=== PATIENT | female | born 1985 | race American Indian/Alaskan Native ===

== ENCOUNTER 2018-02-23 22:55 | Emergency (ER) | payer OTHER ==
[2018-02-24 01:01] VITALS: BP 103/64
[2018-02-24] MEDS ORDERED: TYLENOL PO ONE (01:10)
--- NOTE | 2018-02-24 02:45 | XRay Report ---
FINAL REPORT EXAM: XR ANKLE 2V LT HISTORY: left ankle pain and swelling TECHNIQUE: Two views of the left ankle PRIORS: None. FINDINGS: The bones are normally aligned and mineralized. The joint spaces are well-preserved. There is no evidence of acute fracture. There is prominent lateral soft tissue swelling just below the lateral malleolus. IMPRESSION: No evidence of acute fracture or subluxation. Prominent lateral soft tissue swelling just below the lateral malleolus.
--- NOTE | 2018-02-24 03:19 | Emergency Department Report ---
ED Lower Extremity HPI - General Chief Complaint: Extremity Injury, Lower Stated Complaint: UPPER RESPIRATORY INFECTION Time Seen by Provider: 02/24/18 03:11 Source: patient, family Mode of arrival: Ambulatory Limitations: No Limitations - Related Data Previous Rx's Medication Instructions Recorded Last Taken Type Nitrofurantoin [place]/M-Cryst 100 mg PO Q12HR 7 Days capsule 03/01/13 Unknown Rx [Macrobid] Ibuprofen [Motrin 600 MG tab] 600 mg PO Q8H #30 tablet 02/24/18 Unknown Rx Allergies Allergy/AdvReac Type Severity Reaction Status Date / Time No Known Allergies Allergy Verified 10/10/13 01:57 ED Review of Systems ROS: Stated complaint: UPPER RESPIRATORY INFECTION Other details as noted in HPI ED Past Medical Hx - Past Medical History Previous Medical History?: No Hx Hypertension: No Hx Congestive Heart Failure: No Hx Diabetes: No Hx Deep Vein Thrombosis: No Hx Renal Disease: No Hx Sickle Cell Disease: No Hx Seizures: No Hx Asthma: No Hx COPD: No Hx HIV: No - Surgical History Past Surgical History?: No - Social History Smoking Status: Never Smoker Substance Use Type: None - Medications Home Medications: Home Medications Medication Instructions Recorded Confirmed Last Taken Type Nitrofurantoin [place]/M-Cryst 100 mg PO Q12HR 7 Days capsule 03/01/13 10/10/13 Unknown Rx [Macrobid] Ibuprofen [Motrin 600 MG tab] 600 mg PO Q8H #30 tablet 02/24/18 Unknown Rx ED Physical Exam - General Limitations: No Limitations ED Course Vital Signs 02/24/18 00:58 Temperature 97.9 F Pulse Rate 97 H Respiratory 18 Rate Blood Pressure 103/64 O2 Sat by Pulse 99 Oximetry ED Lower Extremity MDM - Radiology Data Radiology results: report reviewed FINAL REPORT EXAM: XR ANKLE 2V LT HISTORY: left ankle pain and swelling TECHNIQUE: Two views of the left ankle PRIORS: None. FINDINGS: The bones are normally aligned and mineralized. The joint spaces are well-preserved. There is no evidence of acute fracture. There is prominent lateral soft tissue swelling just below the lateral malleolus. IMPRESSION: No evidence of acute fracture or subluxation. Prominent lateral soft tissue swelling just below the lateral malleolus. Transcribed By: RONALD Dictated By: JAQUELINE SAUER MD Electronically Authenticated By: JAQUELINE SAUER MD Signed Date/Time: 09243 DD/ 3 TD/TT: 02/24/18243 Critical care attestation.: If time is entered above; I have spent that time in minutes in the direct care of this critically ill patient, excluding procedure time. ED Disposition Clinical Impression: Left ankle swelling Disposition: - TO HOME OR SELFCARE Is pt being admited?: No Does the pt Need Aspirin: No Condition: Stable Additional Instructions: Please take Motrin for pain management. Follow up with your primary care provider for further evaluation. X-ray will negative for fractures or dislocation. Prescriptions: Ibuprofen [Motrin 600 MG tab] 600 mg PO Q8H #30 tablet Referrals: PRIMARY CAREMD [Primary Care Provider] - 3-5 Days [facility] [Provider Group] - 3-5 Days
[2018-02-24] MEDS ORDERED: MOTRIN PO ONE (03:24)
== END 2018-02-24 03:33 | disposition home or self-care (01) ==
LOC: ED 22:55
DX: M25.572 Pain in left ankle and joints of left foot (principal); R22.42 Localized swelling, mass and lump, left lower limb
CPT/HCPCS: 99283

== ENCOUNTER 2019-04-25 10:12 | Emergency (ER) | payer OTHER ==
[2019-04-25 10:31] VITALS: BP 132/79
--- NOTE | 2019-04-25 12:14 | Emergency Department Report ---
ED Lower Extremity HPI - General Chief Complaint: Extremity Injury, Lower Stated Complaint: (L) LEG PAIN/FELL DOWNSTAIRS Time Seen by Provider: 04/25/19 10:41 Source: patient Mode of arrival: Ambulatory Limitations: No Limitations - History of Present Illness Initial Comments: This is a 33-year-old female nontoxic, well nourished in appearance, no acute signs of distress presents to the ED with c/o of left ankle pain. Patient stated that she had a trip and fall from the stairs and twisted ankle while she fell. Patient denies any other trauma. Patient denies any numbness, tingling, fever, chills, nausea, vomiting, chest pain, shortness of breath, headache, stiff neck. Patient denies any joint swelling or joint redness. Patient denies decreased range of motion. Patient stated has decreased gait due to pain. Patient denies any allergies. MD Complaint: ankle injury -: This morning Injury: Ankle: Left Type of Injury: inversion Severity: mild Severity scale (0 -10): 8 Improves With: immobilization Worsens With: weight bearing, movement, palpation Associated Symptoms: swelling, able to partially bear weight, ambulatory. denies: snap/pop sensation, numbness, tingling, unable to bear weight - Related Data Previous Rx's Medication Instructions Recorded Last Taken Type Nitrofurantoin [place]/M-Cryst 100 mg PO Q12HR 7 Days capsule 03/01/13 Unknown Rx [Macrobid] Ibuprofen [Motrin 600 MG tab] 600 mg PO Q8H #30 tablet 02/24/18 Unknown Rx Acetaminophen/Codeine [Tylenol 1 tab PO Q6H PRN #12 tab 04/25/19 Unknown Rx /Codeine # 3 tab] Allergies Allergy/AdvReac Type Severity Reaction Status Date / Time No Known Allergies Allergy Verified 10/10/13 01:57 ED Review of Systems ROS: Stated complaint: (L) LEG PAIN/FELL DOWNSTAIRS Other details as noted in HPI Constitutional: denies: chills, fever Eyes: denies: eye pain, eye discharge, vision change ENT: denies: ear pain, throat pain Respiratory: denies: cough, shortness of breath, wheezing Cardiovascular: denies: chest pain, palpitations Endocrine: no symptoms reported Gastrointestinal: denies: abdominal pain, nausea, diarrhea Genitourinary: denies: urgency, dysuria, discharge Musculoskeletal: denies: back pain, joint swelling, arthralgia Skin: denies: rash, lesions Neurological: denies: headache, weakness, paresthesias Psychiatric: denies: anxiety, depression Hematological/Lymphatic: denies: easy bleeding, easy bruising ED Past Medical Hx - Past Medical History Previous Medical History?: Yes Hx Hypertension: Yes Hx Congestive Heart Failure: No Hx Diabetes: No Hx Deep Vein Thrombosis: No Hx Renal Disease: No Hx Sickle Cell Disease: No Hx Seizures: No Hx Asthma: No Hx COPD: No Hx HIV: No Additional medical history: lupus - Surgical History Past Surgical History?: No - Social History Smoking Status: Never Smoker Substance Use Type: None - Medications Home Medications: Home Medications Medication Instructions Recorded Confirmed Last Taken Type Nitrofurantoin [place]/M-Cryst 100 mg PO Q12HR 7 Days capsule 03/01/13 10/10/13 Unknown Rx [Macrobid] Ibuprofen [Motrin 600 MG tab] 600 mg PO Q8H #30 tablet 02/24/18 Unknown Rx Acetaminophen/Codeine [Tylenol 1 tab PO Q6H PRN #12 tab 04/25/19 Unknown Rx /Codeine # 3 tab] ED Physical Exam - General Limitations: No Limitations General appearance: alert, in no apparent distress - Head Head exam: Present: atraumatic, normocephalic - Eye Eye exam: Present: normal appearance - Extremities Exam Extremities exam: Present: normal inspection, full ROM, tenderness, normal capillary refill. Absent: joint swelling - Expanded Lower Extremity Exam Left Hip exam: Present: normal inspection, full ROM. Absent: tenderness, swelling Upper Leg exam: Present: normal inspection, full ROM. Absent: tenderness, swelling Knee exam: Present: normal inspection, full ROM. Absent: tenderness, swelling Lower Leg exam: Present: normal inspection, full ROM. Absent: tenderness Ankle exam: Present: normal inspection, full ROM, tenderness, swelling, ecchymosis. Absent: abrasion, laceration, deformity, crepidus, dislocation, erythema, anterior draw sign Foot/Toe exam: Present: normal inspection, full ROM. Absent: tenderness, swelling Neuro vascular tendon exam: Present: no vascular compromise Gait: Positive: observed and limited by pain - Back Exam Back exam: Present: normal inspection, full ROM. Absent: tenderness, CVA tenderness (R), CVA tenderness (L), muscle spasm, paraspinal tenderness, vertebral tenderness, rash noted - Neurological Exam Neurological exam: Present: alert, oriented X3, normal gait - Psychiatric Psychiatric exam: Present: normal affect, normal mood - Skin Skin exam: Present: warm, dry, intact, normal color. Absent: rash ED Course Vital Signs 04/25/19 10:29 Temperature 98.4 F Pulse Rate 96 H Respiratory 16 Rate Blood Pressure 132/79 [Left] O2 Sat by Pulse 96 Oximetry - Reevaluation(s) Reevaluation #1: 04/25/19 12:14 Patient is speaking in full sentences with no signs of distress noted. ED Lower Extremity MDM - Medical Decision Making This is a 33-year-old female that presents with left ankle sprain. Patient is stable and was examined by me. I referred patient to an orthopedic doctor for further evaluation for possible MRI. X-ray has been obtained and dictated by the radiologist. Patient is notified of the x-ray report with noted by the patient. Patient does have normal gait with no tenderness and no joint swelling. No ecchymosis. no joint redness or swelling. Not warm to touch. No signs of cellulites present. Patient received ankle stirrup and crutches and was educated by RN how to use crutches. Patient was instructed to RICE therapy. Patient received Motrin for pain. Patient is discharged with Tylenol #3. At time of discharge, the patient does not seem toxic or ill in appearance. No acute signs of distress noted. Patient agrees to discharge treatment plan of care. No further questions noted by the patient. Critical care attestation.: If time is entered above; I have spent that time in minutes in the direct care of this critically ill patient, excluding procedure time. ED Disposition Clinical Impression: Left ankle sprain Qualifiers: Encounter type: initial encounter Involved ligament of ankle: unspecified ligament Qualified Code(s): S93.402A - Sprain of unspecified ligament of left ankle, initial encounter Disposition: TO HOME OR SELFCARE Is pt being admited?: No Does the pt Need Aspirin: No Condition: Stable Instructions: Ankle Sprain (ED), Ankle Stirrup Splint (ED), RICE Therapy (ED), Acetaminophen/Codeine (By mouth) Additional Instructions: Follow-up with a orthopedic doctor in 3-5 days or if symptoms worsen and continue return to emergency room as soon as possible. Do not operate any machinery while taking Tylenol with codeine as this may cause drowsiness. Prescriptions: Acetaminophen/Codeine [Tylenol /Codeine # 3 tab] 1 tab PO Q6H PRN #12 tab PRN Reason: Pain , Severe (7-10) Referrals: PRIMARY CAREMD [Referring] - 3-5 Days DANIELLE ANSARI MD [Staff Physician] - 3-[address] [facility] [Outside] - 3-5 Days Forms: Work/School Release Form(ED)
--- NOTE | 2019-04-25 12:30 | XRay Report ---
XR ankle 3+V LT INDICATION / CLINICAL INFORMATION: ankle pain and swelling. COMPARISON: None available. FINDINGS: BONES/JOINT(S): No acute fracture or subluxation. No significant degenerative changes. SOFT TISSUES: Mild soft tissue swelling in the lateral ankle. ADDITIONAL FINDINGS: None. Signer Name: Bin Amor MD Signed: 04/25/2019 12:26 PM Workstation Name: [id number]
== END 2019-04-25 13:34 | disposition home or self-care (01) ==
LOC: ED 10:12
DX: S93.402A Sprain of unspecified ligament of left ankle, initial encounter (principal); I10 Essential (primary) hypertension; Z79.899 Other long term (current) drug therapy; W01.0XXA Fall on same level from slipping, tripping and stumbling without subsequent striking against object, initial encounter; Y93.01 Activity, walking, marching and hiking; Y92.89 Other specified places as the place of occurrence of the external cause; Y99.8 Other external cause status

== ENCOUNTER 2019-10-26 22:41 | Observation (INO) | payer OTHER ==
[2019-10-26] MEDS ORDERED: ASPIRIN 325 MG TAB PO ONE (23:20)
[2019-10-26 23:54] LABS: Basophils # (Auto) 0.1 K/mm3 (0.0-0.1); Basophils % (Auto) 0.8 % (0.0-1.8); Eosinophils # (Auto) 0.1 K/mm3 (0.0-0.4); Eosinophils % (Auto) 0.8 % (0.0-4.3); Hematocrit 39.4 % (30.3-42.9); Lymphocytes # (Auto) 1.5 K/mm3 (1.2-5.4); Lymphocytes % (Auto) 22.1 % (13.4-35.0); Mean Corpuscular HGB Conc 33 % (30-34); Mean Corpuscular Volume 88 fl (79-97); Monocytes # (Auto) 0.5 K/mm3 (0.0-0.8); Platelet Count 338 K/mm3 (140-440); Red Blood Count 4.46 M/mm3 (3.65-5.03); Red Cell Distribution Width 14.2 % (13.2-15.2)
--- NOTE | 2019-10-27 00:03 | XRay Report ---
CHEST 1 VIEW, 10/26/2019 10:50 PM CLINICAL INFORMATION/INDICATION: Chest pain COMPARISON: No relevant prior studies are available for comparison FINDINGS: SUPPORT DEVICES: None. HEART: The cardiac silhouette is normal in size. LUNGS/PLEURA: The lungs are clear of focal airspace disease or significant pleural effusion. ADDITIONAL FINDINGS: No additional acute findings. IMPRESSION: 1. No evidence of acute cardiopulmonary process. Signer Name: Mary Silver MD Signed: 10/26/2019 11:59 PM Workstation Name: [id number]
[2019-10-27 00:17] LABS: BUN/Creatinine Ratio 15; Blood Urea Nitrogen 12 mg/dL (7-17); Calcium 9.2 mg/dL (8.4-10.2); Hemolysis Index 21
[2019-10-27] MEDS ORDERED: NITROGLYCERIN 2% OINT 1 GM TP ONE (00:49)
[2019-10-27] MEDS ORDERED: ONDANSETRON 4 MG/2 ML INJ IV ONE (00:49)
[2019-10-27] MEDS ORDERED: fentaNYL 100 MCG/2 ML INJ IV ONE (00:49)
--- NOTE | 2019-10-27 00:54 | Emergency Department Report ---
HPI - General Chief Complaint: Chest Pain Time Seen by Provider: 10/27/19 00:42 - HPI HPI: Room 4 The patient is a 34-year-old female present with a chief complaint of chest pain. Patient states her symptoms began yesterday with substernal chest pain r adiating to the left upper extremity. Patient describes the chest pain is sharp and constant in nature. Patient admits to pleurisy. Patient admits to shortness of breath, diaphoresis and nausea without vomiting with this chest pain. Patient currently gives her pain a score of 8/10. Patient denies cough but states she has been in contact last week with a person who is COVID positive. Patient states she is never had a stress test or cardiac catheterization ED Past Medical Hx - Past Medical History Previous Medical History?: Yes Additional medical history: lupus - Surgical History Past Surgical History?: No - Family History Family history: no significant - Social History Smoking Status: Never Smoker Substance Use Type: None (Denies illicit drug use) - Medications Home Medications: Home Medications Medication Instructions Recorded Confirmed Last Taken Type Nitrofurantoin [place]/M-Cryst 100 mg PO Q12HR 7 Days capsule 03/01/13 10/10/13 Unknown Rx [Macrobid] Ibuprofen [Motrin 600 MG tab] 600 mg PO Q8H #30 tablet 02/24/18 Unknown Rx Acetaminophen/Codeine [Tylenol 1 tab PO Q6H PRN #12 tab 04/25/19 Unknown Rx /Codeine # 3 tab] ED Review of Systems ROS: Stated complaint: SOB/CHEST PRESSURE/DIZZY/EAR PAIN Other details as noted in HPI Constitutional: diaphoresis Eyes: denies: eye pain ENT: denies: throat pain Respiratory: shortness of breath, other (Pleurisy) Cardiovascular: chest pain Endocrine: no symptoms reported Gastrointestinal: nausea. denies: vomiting Genitourinary: denies: dysuria Neurological: headache Physical Exam - Physical Exam Vital Signs: Vital Signs 10/26/19 23:10 Temperature 98.6 F Pulse Rate 103 H Respiratory 18 Rate Blood Pressure 125/87 O2 Sat by Pulse 100 Oximetry Physical Exam: GENERAL: The patient is well-developed well-nourished female lying on stretcher not appearing to be in acute distress. [] HEENT: Normocephalic. Atraumatic. Extraocular motions are intact. Patient has moist mucous membranes. NECK: Supple. Trachea midline CHEST/LUNGS: Clear to auscultation. There is no respiratory distress noted. HEART/CARDIOVASCULAR: Regular. There is no tachycardia. There is no gallop rub or murmur. ABDOMEN: Abdomen is soft, nontender. Patient has normal bowel sounds. There is no abdominal distention. SKIN: There is no rash. There is no edema. There is no diaphoresis. NEURO: The patient is awake, alert, and oriented. The patient is cooperative. The patient has normal speech MUSCULOSKELETAL: There is no evidence of acute injury. ED Course Vital Signs 10/26/19 23:10 Temperature 98.6 F Pulse Rate 103 H Respiratory 18 Rate Blood Pressure 125/87 O2 Sat by Pulse 100 Oximetry ED Medical Decision Making - Lab Data Result diagrams: 10/26/19 23:35 10/26/19 23:35 Laboratory Tests 10/26/19 10/26/19 10/26/19 23:35 23:35 23:35 WBC 6.6 RBC 4.46 Hgb 13.0 Hct 39.4 MCV 88 MCH 29 MCHC 33 RDW 14.2 Plt Count 338 Lymph % (Auto) 22.1 [place] % (Auto) 8.0 H Eos % (Auto) 0.8 Baso % (Auto) 0.8 Lymph # 1.5 [place] # 0.5 Eos # 0.1 Baso # 0.1 Seg Neutrophils % 68.3 Seg Neutrophils # 4.5 Sodium 138 Potassium 4.1 Chloride 100.0 Carbon Dioxide 24 Anion Gap 18 BUN 12 Creatinine 0.8 Estimated GFR > 60 BUN/Creatinine Ratio 15 Glucose 81 Calcium 9.2 Troponin T < 0.010 HCG, Qual Negative - EKG Data -: EKG Interpreted by Me EKG shows normal: sinus rhythm Rate: normal - EKG Data When compared to previous EKG there are: previous EKG unavailable Interpretation: other (No ischemic changes seen) - Radiology Data Radiology results: report reviewed (Chest x-ray, CT chest), image reviewed (Chest x-ray, CT chest) interpreted by me: Chest x-ray-no focal infiltrates, no pneumothorax Findings [facility] [address] [place] [address] XRay Report Signed Patient: AZRA DE LA PAZ MR#: [id number] : 1985 Acct:[id number] Age/Sex: 34 / F ADM Date: 10/26/19 Loc: ED Attending Dr: Ordering Physician: NY CASEY MD Date of Service: 10/26/19 Procedure(s): XR chest 1V ap Accession Number(s): [id number] cc: NY CASEY MD Fluoro Time In Minutes: CHEST 1 VIEW, 10/26/2019 10:50 PM CLINICAL INFORMATION/INDICATION: Chest pain COMPARISON: No relevant prior studies are available for comparison FINDINGS: SUPPORT DEVICES: None. HEART: The cardiac silhouette is normal in size. LUNGS/PLEURA: The lungs are clear of focal airspace disease or significant pleural effusion. ADDITIONAL FINDINGS: No additional acute findings. IMPRESSION: 1. No evidence of acute cardiopulmonary process. Signer Name: Mary Silver MD Signed: 10/26/2019 11:59 PM Workstation Name: [id number] Transcribed By: EB Dictated By: Mary Silver MD Electronically Authenticated By: Mary Silver MD Signed Date/Time: 10/26/192358 DD/ 57 TD/TT: Findings [facility] [address] [place] [address] Cat Scan Report Signed Patient: AZRA DE LA PAZ MR#: [id number] : 1985 Acct:[id number] Age/Sex: 34 / F ADM Date: 10/26/19 Loc: ED Attending Dr: Ordering Physician: BABS VARELA MD Date of Service: 10/27/19 Procedure(s): CT angio chest Accession Number(s): [id number] cc: BABS VARELA MD CTA CHEST WITH IV CONTRAST INDICATION: Chest pain TECHNIQUE: Axial CT images were obtained through the chest after injection of IV contrast. Coronal oblique 2-D reconstruction images were produced. 3 plane MIP reconstruction images were produced at an independent workstation. All CTs at this facility utilize dose reduction techniques including automated exposure control, iterative reconstruction and weight based dosing when appropriate to reduce patient radiation dose to as low as reasonable achievable. COMPARISON: Chest radiograph, 10/26/2019 FINDINGS: Evaluation of the pulmonary arteries demonstrates no central or segmental filling defects to suggest pulmonary embolism. The heart is normal in size. The thoracic aorta appears normal in caliber. Evaluation of the lung parenchyma demonstrates no evidence of focal airspace disease or pleural effusion. Limited imaging of the upper abdomen demonstrates no evidence of acute abnormality. Evaluation of bony structures demonstrates no evidence of acute bony abnormality. Evaluation of soft tissue structures demonstrates no evidence of focal soft tissue abnormality.. IMPRESSION: 1. No CT evidence of pulmonary em bolism or acute parenchymal process. Signer Name: Mary Silver MD Signed: 10/27/2019 1:53 AM Workstation Name: [email or web address] Transcribed By: EB Dictated By: Mary Silver MD Electronically Authenticated By: Mary Silver MD Signed Date/Time: 10/27/19 0153 DD/ 0149 TD/TT: - Differential Diagnosis ACS, PE, pericarditis, GERD Critical care attestation.: If time is entered above; I have spent that time in minutes in the direct care of this critically ill patient, excluding procedure time. ED Disposition Clinical Impression: Chest pain Disposition: DC-[id number] OP ADMIT IP TO THIS HOSP Is pt being admited?: Yes Does the pt Need Aspirin: Yes Condition: Fair Instructions: Chest Pain (ED) Referrals: PRIMARY CARE, [Primary Care Provider] - 3-5 Days Time of Disposition: 02:06 (Hospitalist paged (Dr. Shea Oates))
[2019-10-27] MEDS ORDERED: ASPIRIN 325 MG TAB ONE (01:29)
--- NOTE | 2019-10-27 01:58 | Cat Scan Report ---
CTA CHEST WITH IV CONTRAST INDICATION: Chest pain TECHNIQUE: Axial CT images were obtained through the chest after injection of IV contrast. Coronal oblique 2-D reconstruction images were produced. 3 plane MIP reconstruction images were produced at an [employer] workstation. All CTs at this facility utilize dose reduction techniques including automated expos ure control, iterative reconstruction and weight based dosing when appropriate to reduce patient radi ation dose to as low as reasonable achievable. COMPARISON: Chest radiograph, 10/26/2019 FINDINGS: Evaluation of the pulmonary arteries demonstrates no central or segmental filling defects to suggest pulmonary embolism. The heart is normal in size. The thoracic aorta appears normal in caliber. Evalua tion of the lung parenchyma demonstrates no evidence of focal airspace disease or pleural effusion. Limited imaging of the upper abdomen demonstrates no evidence of acute abnormality. Evaluation of bony structures demonstrates no evidence of acute bony abnormality. Evaluation of soft tissue structures demonstrates no evidence of focal soft tissue abnormality.. IMPRESSION: 1. No CT evidence of pulmonary embolism or acute parenchymal process. Signer Name: Mary Silver MD Signed: 10/27/2019 1:53 AM Workstation Name: [email or web address]
[2019-10-27] MEDS ORDERED: ONDANSETRON 4 MG/2 ML INJ IV PRN (03:39)
[2019-10-27] MEDS ORDERED: ACETAMINOPHEN 325 MG TAB PO PRN (03:39)
--- NOTE | 2019-10-27 03:43 | History and Physical Report ---
History of Present Illness History of present illness: 34-year-old woman with a history of lupus comes emergency room for evaluation. She complains of chest pain in the left substernal area which she describes as sharp pain, constant, intensity 5/10, radiating to the left arm which he described as a burning sensation in the arm. Admits to nausea, no vomiting, shortness of breath, diaphoresis or palpitation. The patient will be admitted for chest pain Review Of Systems: Constitutional: no weight loss, fever, chills Ears, eyes, nose, mouth and throat: no nasal congestion, no nasal discharge, no sinus pressure, blurry vision, diplopia Neck: No neck pain or rigidity. Cardiovascular: No palpitation Respiratory: No shortness of breath, cough Gastrointestinal: No hematochezia Genitourinary : no dysuria, frequency Musculoskeletal: no muscle ache , joint pain Integumentary: no rash, no pruritis Neurological: no parathesias, focal weakness Endocrine: no cold or heat intolerance, no polyuria or polydipsia Hematologic/Lymphatic: no easy bruising, no easy bleeding, no gland swelling Allergic/Immunologic: no urticaria, no angioedema. PAST MEDICAL HISTORY: Lupus PAST SURGICAL HISTORY: None SOCIAL HISTORY: Denies alcohol, tobacco, drugs FAMILY HISTORY: Hypertension Medications and Allergies Allergies Allergy/AdvReac Type Severity Reaction Status Date / Time No Known Allergies Allergy Verified 10/10/13 01:57 Home Medications Medication Instructions Recorded Confirmed Last Taken Type No Known Home Medications [No 10/27/19 10/27/19 Unknown History Reported Home Medications] Exam - Physical Exam Narrative exam: Gen. appearance: Patient lying in bed, no apparent distress HEENT: Normocephalic, atraumatic, pupils equally round and reactive to light, extraocular movement intact, and no sclericterus,. No JVD or thyromegaly or nodule,neck supple, no carotid bruit ,mucous membranes moist, no exudate or erythema Heart: S1, S2, regular rate and rhythm Lungs: Clear bilaterally, breathing comfortable Abdomen: Positive bowel sounds, nontender, nondistended, no organomegaly Extremity: no edema, cyanosis, clubbing Skin: No rash, nodules, warm, dry Neuro: Cranial nerves II to XII intact, speech is fluent, moves extremities, sensory intact - Constitutional Vitals: Temp Pulse Resp BP Pulse Ox 98.4 F 103 H 18 110/66 98 10/27/19 01:00 10/27/19 02:16 10/27/19 02:26 10/27/19 02:16 10/27/19 02:16 HEART Score - HEART Score Troponin: Troponin T < 0.010 ng/mL (0.00-0.029) 10/27/19 02:17 Results - Labs CBC & Chem 7: 10/26/19 23:35 10/26/19 23:35 Labs: Abnormal lab results 10/26/19 Range/Units 23:35 [place] % (Auto) 8.0 H (0.0-7.3) % - Imaging and Cardiology EKG: image reviewed Chest x-ray: report reviewed CT scan - chest: report reviewed Assessment and Plan Assessment Chest pain Check cardiac enzymes, consult cardiology No stress test available today IV morphine, aspirin, DVT prophylaxis Lupus, stable
[2019-10-27] MEDS: ENOXAPARIN 40 MG/0.4 ML INJ SUB-Q SCH (09:09)
[2019-10-27] MEDS: ASPIRIN 81 MG TAB CHEW PO SCH (09:09)
[2019-10-27] MEDS: MORPHINE 2 MG/1 ML INJ IV PRN ×2 (09:09→22:12)
--- NOTE | 2019-10-27 09:55 | Event Note ---
Date: 10/27/19 34-year-old female patient with h/o lupus was admitted this morning with chest pain, Patient was evaluated by cardiology, and is scheduled for a stress test tomorrow CTA chest -ve for PE, continue current management,f/u echo for LV function and ejection fraction Follow stress test if negative and patient is stable may be discharged home tomorrow Plan of care reviewed with the patient and her nurse
[2019-10-27] MEDS ORDERED: ENOXAPARIN 30 MG/0.3 ML INJ SUB-Q SCH (10:00)
--- NOTE | 2019-10-27 10:38 | Consultation ---
REFERRING PHYSICIAN: Hospitalist service. REASON FOR CONSULTATION: Advice and opinion regarding chest pain. HISTORY OF PRESENT ILLNESS: The patient is a very pleasant 34-year-old female with a history of lupus. 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 She had an episode of chest pain, describes as sharp and constant, radiating to left arm, some burning. No diaphoresis, nausea or vomiting. No syncope or presyncope. No blurred vision. PAST MEDICAL HISTORY: Lupus. PAST SURGICAL HISTORY: None. SOCIAL HISTORY: Nonsmoker, nondrinker. FAMILY HISTORY: No family history of premature heart disease. She has a family history of hypertension. ALLERGIES: No known drug allergies. MEDICATIONS: No known home medications. PHYSICAL EXAMINATION: VITAL SIGNS: Blood pressure is 120/76. She is afebrile. Tele reveals sinus rhythm in 80s, no dysrhythmias or pauses. O2 sat is 99% on room air. HEENT: Sclerae are anicteric. NECK: Supple. No mass or JVD. CHEST: Clear to auscultation bilaterally. Good air movement. CARDIOVASCULAR: Regular rhythm S1, S2. ABDOMEN: Soft, nontender, nondistended. Normoactive bowel sounds in 4 quadrants. No mass or bruits. EXTREMITIES: No cyanosis, clubbing, edema. Good peripheral pulses. SKIN: Intact. No rashes. DATA: EKG is nonacute. Chest x-ray is unremarkable. Chest CT reveals no pulmonary embolus or acute parenchymal process. LABORATORY DATA: Cardiac enzymes are negative x 2. test is negative. CBC is normal. BMP is normal. ASSESSMENT AND PLAN: In conclusion, the patient is a very pleasant 34-year-old female with history of lupus here with chest pain with typical and atypical features. Cardiac enzymes negative x 2. EKG is nonacute. At this point, we will check stress test, echocardiogram, aggressive primary and secondary prevention measures. Continue aspirin, DVT prophylaxis. Further plans contingent on these results. Thank you for this consultation. We would be happy to follow along with you. JOB# [id number] SBM/NTS
[2019-10-28 05:15] LABS: Chol/HDL Ratio 3.02 %
[2019-10-28] MEDS ORDERED: REGADENOSON 0.4 MG/5 ML INJ IV ONE ×2 (08:06→08:14)
--- NOTE | 2019-10-28 11:36 | Progress Note ---
Assessment and Plan no further cp tte/stress thallium unremarkable aggressive primary and secondary prevention measures - Patient Problems (1) Chest pain Current Visit: Yes Status: Acute Subjective Date of service: 10/28/19 Interval history: no cp or any sxs overnight Objective Vital Signs Temp Pulse Pulse Pulse Resp BP Pulse Ox 10/28/19 10:32 135/75 10/28/19 10:30 120/75 10/28/19 10:28 131/73 10/28/19 10:26 134/67 10/28/19 10:24 120/73 10/28/19 10:22 110/77 10/28/19 10:13 116/70 10/28/19 07:45 98.3 F 94 H 20 104/68 99 10/28/19 07:30 81 81 16 99 10/28/19 04:32 98.1 F 91 H 18 101/56 96 10/28/19 00:08 98.4 F 100 H 18 87/54 99 10/27/19 23:00 96 H 10/27/19 22:42 18 10/27/19 22:12 18 10/27/19 22:00 96 H 18 100 10/27/19 19:36 98.7 F 96 H 18 115/62 100 10/27/19 16:18 98.3 F 18 100/56 10/27/19 15:00 100 H - Labs and Meds Lipids 10/28/19 Range/Units 04:00 Triglycerides 57 (2-149) mg/dL Cholesterol 142 (50-199) mg/dL HDL Cholesterol 47 (40-59) mg/dL Cholesterol/HDL Ratio 3.02 % - Imaging and Cardiology EKG: image reviewed
[2019-10-28] MEDS: ASPIRIN 81 MG TAB CHEW PO SCH (11:43)
[2019-10-28] MEDS: ENOXAPARIN 40 MG/0.4 ML INJ SUB-Q SCH (11:43)
[2019-10-28 11:58] VITALS: BP 111/73
--- NOTE | 2019-10-28 12:42 | Treadmill Report ---
NUCLEAR PERFUSION SCAN REFERRING PHYSICIAN: Hospitalist service. PROTOCOL: The patient was brought to the stress lab in a postoperative state, given 10 mCi of technetium 99m at rest. The patient underwent rest imaging. The patient underwent Lexiscan stress test per standard protocol. At peak stress, the patient was given 26 mCi of technetium 99m. Shortly thereafter, the patient underwent stress imaging. Raw imaging reveals significant breast attenuation, mild GI artifact, no motion artifact. SPECT images examined carefully in horizontal long axis, vertical long axis, short axis views. Although technically difficult, grossly no evidence of significant fixed or reversible perfusion defects suggestive of prior infarction or ischemia. Gated wall motion reveals normal systolic thickening, calculated ejection fraction 62%. No TID. CONCLUSIONS: 1. Technically difficult study, but grossly probably normal without evidence of significant degree of prior infarction or active ischemia. 2. Normal left ventricular systolic performance, with a calculated ejection fraction of 62% without evidence of transient ischemic dilatation or stress-induced segmental wall motion abnormalities. JOB# [id number] ELIZ/DARIUSZ
--- NOTE | 2019-10-28 13:43 | Discharge Summary ---
Providers - Providers Date of Admission: 10/27/19 05:22 Date of discharge: 10/28/19 Attending physician: ELA DUNCAN 10/27/19 03:39 Consult to Physician [CONS] Routine Comment: Consulting Provider: MARIS GARCIA Physician Instructions: Reason For Exam: cp Primary care physician: METER ENGINEER Hospitalization Reason for admission: Atypical chest pain Condition: Stable Pertinent studies: Chest x-ray; negative CTA chest; no CT evidence of PE or parenchymal disease Echo; EF 60 to 65%; normal left ventricular diastolic filling Mild concentric LVH Procedures: Stress test; 80 for ischemia, normal LV function Hospital course: Morbidly obese 34-year-old woman with a history of lupus was admitted through emergency room with complains of chest pain in the left substernal area which she describes as sharp pain, constant, intensity 5/10, radiating to the left arm which he described as a burning sensation in the arm. Patient was admitted to the hospital, appropriately managed, subsequently evaluated by cardiology, and patient underwent stress test which was negative for ischemia, normal LV function, patient's chest pain is noncardiac probably secondary to GERD. Advised Protonix Patient also strongly advised diet modification exercise as tolerated and weight reduction when medically stable Patient symptoms significantly improved Today is comfortable no new complaints vital signs stable Physical examination unremarkable Hemodynamically and clinically stable at discharge Discharge diagnosis; --Atypical chest pain; probably noncardiac Probably secondary to GERD, stress test is negative for ischemia EF normal --GERD; probably the cause of chest pain, Protonix --Morbid obesity; BMI 45.7 Advised diet modification exercise as tolerated and weight reduction when stable Patient also advised outpatient bariatric surgical consultation for weight reduction program When medically stable Patient is hemodynamically and clinically stable at discharge Strongly advised the patient to to follow with private regulatory submissions associate Should she have recurrent episodes of chest pain Patient may also need outpatient GI evaluation if she has recurrent worsening symptoms Patient verbalized understanding Disposition: DC-01 TO HOME OR SELFCARE Time spent for discharge: 32 min Core Measure Documentation - Palliative Care Palliative Care/ Comfort Measures: Not Applicable - Core Measures Any of the following diagnoses?: none Exam - Constitutional Vitals: Temp Pulse Resp BP Pulse Ox 98.1 F 84 20 111/73 99 10/28/19 11:00 10/28/19 11:00 10/28/19 11:00 10/28/19 11:00 10/28/19 11:00 General appearance: Present: no acute distress, well-nourished, obese (Morbidly obese) - EENT Eyes: Present: PERRL, EOM intact - Neck Neck: Present: supple, normal ROM - Respiratory Respiratory effort: normal Respiratory: bilateral: diminished, negative: rales, rhonchi, wheezing - Cardiovascular Rhythm: regular Heart Sounds: Present: S1 & S2 Plan Activity: no restrictions Diet: regular Additional Instructions: Advised diet modification, exercise as tolerated and weight reduction. When medically stable. If you have worsening symptoms, contact MD or go to emergency room Follow up with: PRIMARY CARE, [Primary Care Provider] - 3-5 Days SOLIS CUEVAS MD [Staff Physician] - 14 Days Forms: Work/School Release Form Prescriptions: Pantoprazole [Protonix] 40 mg PO QDAY #14 tablet
== END 2019-10-28 16:29 | disposition home or self-care (01) ==
LOC: ED 22:41 → 4A 10-27 05:22 → INTOOBSV 10-27 05:22
PROVIDERS: ADMIT Internal Medicine; ATTEND Internal Medicine
DX: R07.89 Other chest pain (principal); M32.9 Systemic lupus erythematosus, unspecified; Z79.899 Other long term (current) drug therapy
CPT/HCPCS: 36415; 71045; 71275; 78452; 80048; 80061; 84484; 84703; 85025; 93005; 93017; 93306; 96372; 96374; 96375; 96376; 99285; A9502; G0378; J1650; J2270; J2405; J2785; J3010; Q9967